=== PATIENT | male | born 1970 | race African-American/Black ===

== ENCOUNTER 2018-12-24 20:20 | Emergency (ER) | payer SELFPAY ==
[2018-12-24 20:55] VITALS: BP 121/83
[2018-12-24] MEDS ORDERED: LIDOCAINE 1%/EPINEPHRINE INJ 20 ML VIAL INJ ONE (21:32)
[2018-12-24] MEDS ORDERED: CEPHALEXIN 500 MG CAPSULE PO ONE (23:16)
--- NOTE | 2018-12-26 14:32 | ER Document Report ---
Entered by KAYODE ARECHIGA SCRIBE 12/24/[id number] Acting as scribe for:BRANDI ROWE MD ED General - General Chief Complaint: Lip Injury Stated Complaint: LIP INJURY Time Seen by Provider: 12/24/18 21:07 Mode of Arrival: Ambulatory Information source: Patient Notes: Patient is a 48-year-old male presenting to the emergency department complaining of a laceration to his lip onset this evening. Patient states that he was accidentally hit in the lip with a glass jar. Patient is unsure when he received his last tetanus shot. TRAVEL OUTSIDE OF THE [place] IN LAST 30 DAYS: No - Related Data Allergies/Adverse Reactions: No Known Allergies Allergy (Verified 10/17/16 04:05) Past Medical History - General Information source: Patient - Social History Smoking Status: Current Every Day Smoker Cigarette use (# per day): Yes - 1 PPD Chew tobacco use (# tins/day): No Frequency of alcohol use: None Drug Abuse: None Family History: None Patient has suicidal ideation: No Patient has homicidal ideation: No Renal/ Medical History: Reports: Hx Epididymitis Past Surgical History: Reports: Hx Orthopedic Surgery - reconstructive jaw surgery due to broken jaw 10/04 - Immunizations Hx Diphtheria, Pertussis, Tetanus Vaccination: Yes - April 2014 Review of Systems - Review of Systems Constitutional: No symptoms reported EENT: No symptoms reported Cardiovascular: No symptoms reported Respiratory: No symptoms reported Gastrointestinal: No symptoms reported Male Genitourinary: No symptoms reported Musculoskeletal: See HPI Skin: See HPI Hematologic/Lymphatic: No symptoms reported Neurological/Psychological: No symptoms reported -: Yes All other systems reviewed and negative Physical Exam - Vital signs Vitals: Temp Pulse Resp BP Pulse Ox 97.8 F 76 16 121/83 97 12/24/18 20:52 12/24/18 20:52 12/24/18 20:52 12/24/18 20:52 12/24/18 20:52 - Notes Notes: GENERAL: Alert, interacts well. No acute distress. HEAD: Normocephalic, atraumatic. EYES: Pupils equal, round, and reactive to light. Extraocular movements intact. ENT: Oral mucosa moist, tongue midline. NECK: Full range of motion. Supple. Trachea midline. LUNGS: No respiratory distress. EXTREMITIES: Moves all 4 extremities spontaneously. NEUROLOGICAL: Alert and oriented x3. Normal speech. PSYCH: Normal affect, normal mood. SKIN: Warm, dry. 2 cm laceration to the right upper lip at an approximate 45 degree angle, crosses the vermilion border. Course - Re-evaluation Re-evalutation: 12/24/18 23:21 PROCEDURE: The 2 cm lip laceration that extends down through the vermilion border was prepped with Shur-Clens. The area was then anesthetized with 1% lidocaine with epinephrine using approximately 1.5 mL's. The wound was then copiously irrigated with normal saline using a syringe with 25-gauge needle for pressure. The vermilion border was approximated using a 5-0 nylon suture. 3 additional 5- 0 nylon sutures were placed in the wound extending upwards toward the nose. The labial part of the lip was closed with #6 5-0 Vicryl sutures. This makes a total of 10 sutures. - Vital Signs Vital signs: Temp Pulse Resp BP Pulse Ox 97.8 F 76 16 121/83 97 12/24/18 20:52 12/24/18 20:52 12/24/18 20:52 12/24/18 20:52 12/24/18 20:52 Discharge - Discharge Clinical Impression: Laceration of vermilion border of upper lip Qualifiers: Encounter type: initial encounter Qualified Code(s): S01.511A - Laceration without foreign body of lip, initial encounter Disposition: HOME, SELF-CARE I personally performed the services described in the documentation, reviewed and edited the documentation which was dictated to the scribe in my presence, and it accurately records my words and actions.
== END 2018-12-24 23:39 | disposition home or self-care (01) ==
LOC: ER 20:20
DX: S01.511A Laceration without foreign body of lip, initial encounter (principal); W25.XXXA Contact with sharp glass, initial encounter; F17.210 Nicotine dependence, cigarettes, uncomplicated
CPT/HCPCS: 99282; J3490